=== PATIENT | female | born 1985 | race Asian ===

== ENCOUNTER 2024-02-09 02:31 | Inpatient (IN) | payer BC, SELFPAY ==
[2024-02-09] VITALS (288 sets, daily range): BP systolic 93–140; BP diastolic 51–79; PULSE 63–121; RESP 16–18; TEMP 36.6–37.1; O2SAT 83–100; BMI 35.7
--- NOTE | 2024-02-09 03:21 | XR_ITS ---
Examination: age Limited Technique: Limited transabdominal sonographic images pelvis Exam date and time: February 09, 2024 0345 hrs. Indications: Patient in labor, labor evaluation and not presentation Findings: presentation Vertex Cardiac motion 122 BPM Estimated weight 3383.9 g Estimated age 38 weeks 2 days Impression: Viable intrauterine gestation vertex presentation
--- NOTE | 2024-02-09 04:53 | PRELIM_ITS ---
Obstetric ultrasound (limited) with Doppler. February 09, 2024 0345 hours Clinical history: presentat ion; efw Comparison: None.Findings:There is a gravid uterus with a live fetus in the vertex presentat ion of mean gestational age 38 weeks and 2 days (by biometry). cardiac activity is presen t at a heart rate of 122 beats per minute. The placenta is anterior/fundal in location. There is no evidence of placenta previa or retroplacental hemorrhage. Estimated weight is 3384 grams+/- 501 grams. VIVIAN by ultrasound is 02/21/2024. Impression:Gravid uterus with a single live fetus in vertex presentation of mean gestational age 38 weeks 2 days.Estimated weight is 3384 grams+/- 501 gram s. Report Electronically Signed By: Bud Sanford 02/09/2024 4:52:51 AM [EST]
[2024-02-09 05:26] LABS: Basophils % (Auto) 0 % (0-2.5); Eosinophils # (Auto) 0.2 Thou/mm3 (0.0-0.5); Eosinophils % (Auto) 2 % (0-10); Hemoglobin 12.1 g/dL (12.0-16.0); Immature Granulocytes % (Auto) 1 % (0-0); Immature Granulocytes Auto 0.07 Thou/mm3 (0.00-0.00); Lymphocytes # (Auto) 1.9 Thou/mm3 (1.0-4.8); Lymphocytes % (Auto) 23 % (10-50); Mean Corpuscular HGB Conc 34.6 g/dl (31.0-37.0); Mean Corpuscular Hemoglobin 32.3 pg (25.0-35.0); Mean Corpuscular Volume 93 fL (80-100); Monocytes # (Auto) 0.7 Thou/mm3 (0.0-0.8); Monocytes % (Auto) 9 % (0-12); Neutrophils # (Auto) 5.6 Thou/mm3 (1.8-7.7); Neutrophils % (Auto) 66 % (37-80); Nucleated Red Blood Cell % 0 /100 WBC (0); Platelet Count 253 Thou/mm3 (140-440); RDW Standard Deviation 43.8 fL (36.4-46.3); Red Blood Count 3.75 Miln/mm3 (4.00-5.20); White Blood Count 8.5 Thou/mm3 (3.6-11.0)
[2024-02-09 06:06] LABS: Syphilis Nonreactive (Nonreactive)
--- NOTE | 2024-02-09 07:00 | PD.LDHP ---
Documentation for date of: 02/09/24 OB Labor/Induct. HPI History of Present Illness : 1 History of present illness: 38 y/o @38w1d, conceived through IVF is admitted after spontaneous rupture of membranes at term. Patient denies any fever denies any bleeding or contractions History of Present Dating criteria: LMP confirmed by 1st trimester US Adequate Care: Yes Labs Labs: Negative: Hepatitis B, HIV, Chlamydia, Gonorrhea and Group Beta Strep Meds Home Medications and Allergies Home Medications ?Medication ?Instructions ?Recorded ?Confirmed ?Type aspirin 81 mg chewable tablet 81 mg PO QDAY 11/12/23 11/12/23 History vit no.95-ferrous 1 tab PO QDAY 11/12/23 11/12/23 History fumarate 28 mg-folic acid 800 mcg tablet () Allergies Allergy/AdvReac Type Severity Reaction Status Date / Time No Known Allergies Allergy Verified 11/12/23 11:23 OB Exam Physical Exam Vital signs: Temp Pulse Resp BP Pulse Ox O2 Del Method 97.8 F 100 18 122/73 99 Room Air 02/09/24 03:29 02/09/24 03:10 02/09/24 02:43 02/09/24 03:10 02/09/24 06:48 02/09/24 02:43 Constitutional Constitutional: no acute distress Routine HEENT Exam Head: Present normocephalic and atraumatic Eye: Present EOMI and PERRL ENT: Present mucous membranes moist Routine Neck Exam Neck: Present supple and trachea midline Routine Cardiovascular Exam Cardiovascular: Present RRR Routine Abdominal Exam Abdominal: Present soft and normoactive bowel sounds Detailed Labor and Delivery Exam Dilation (cm): 3 Effacement (%): 50 Presentation: Vertex Membranes: ruptured Amniotic fluid: clear Comments: Category 1 heart tones Occasional contractions Routine Extremities Exam Extremities: Present full ROM Routine Skin Exam Skin: Present intact, dry and warm Routine Neurological Exam Neurological: Present alert, oriented X3 and CN II-XII intact Routine Psychiatric Exam Psychiatric: Present normal affect and normal thought process OB Results Labs 02/09/24 03:45 Labs: Short CBC 02/09/24 Range/Units 03:45 WBC 8.5 (3.6-11.0) Thou/mm3 Hgb 12.1 (12.0-16.0) g/dL Hct 35.0 L (36.0-46.0) % Plt Count 253 (140-440) Thou/mm3 Impressions Impression: 38-year-old G1, P0 conceived through IVF admitted after spontaneous rupture of membrane at 38 weeks and 1 day Vertex presentation Unknown GBS OB Assessment & Plan Additional Plan Additional Plan Comment: GBS prophylaxis Pitocin to be started if no cervical change
[2024-02-09] MEDS: RINGERS LACTATED 1000 ML 1,000 ML 100 ML IV ×3 (08:36→18:03)
[2024-02-09] MEDS: OXYTOCIN in NS 30 units 30 UNIT/500 ML BAG IV (08:50)
[2024-02-09] MEDS: fentaNYL CIT INJ 50 mCg/ML AMP 2ML 100 MCG IV (11:23)
--- NOTE | 2024-02-09 13:14 | PD.LDPN ---
Documentation for date of: 02/09/24 OB Labor Progress Note Pain Control Pain control: epidural Pelvic Exam Dilation (cm): 8 Effacement (%): 90 station: -2 Amniotic membrane status: Ruptured Contractions Monitor mode: External Contraction frequency: 2-3 Contraction duration: 40-60 Status status: Category l Assessment and Plan Pitocin rate (mU/min): 4 Assessment: active labor Plan OB labor note: continuous present management Comments: Pt is progressing well Reassuring fetus Allow pt to labor down upon completion Anticipate
[2024-02-09] MEDS: Ampicillin Inj 2,000 MG in SODIUM CHLORIDE 0.9% (P) 100 ML 200 MG IV (19:58)
[2024-02-09] MEDS: MINERAL OIL 30 ML UDC TOP (21:19)
[2024-02-09] MEDS: BENZO/LANO/ALOE (Dermoplast) 60 GM CAN 1 SPRAY TOP (22:49)
--- NOTE | 2024-02-09 22:50 | PD.LDDELS ---
Data ([facility]) Data Hx Section: No Maternal Blood Type: O Pos Rubella Titre: Positive RPR: Non-reactive Labs: Negative: RPR, Hepatitis B, HIV, Chlamydia, Gonorrhea and Group Beta Strep and Unknown: Herpes Type 1 and Herpes Type 2 : 1 Para: 0 Term: 0 : 0 Livin : 0 Delivery Data ([facility]) Labor Data Stimulated/Augmented: Yes Induction: No Method: Oxytocin ROM Date: 02/09/24 ROM Time: 02:00 Rupture Type: SROM Amniotic Fluid: Clear Delivery Data EDC: 02/22/24 EDC calculated by:: LMP/early US confirmation Labor Onset Stage 1 Date: 02/09/24 Labor Onset Stage 1 Time: 02:00 Labor Onset Stage 2 Date: 02/09/24 Labor Onset Stage 2 Time: 20:08 Delivery Date: 02/09/24 Delivery Time: 22:15 Gestational age (weeks): 38 Gestational age (days): 1 Placenta Delivery Date: 02/09/24 Placenta Delivery Time: 22:18 Delivered by: Neela Catherine Delivery nurse: Whitney Bonilla V Belt Finisher at delivery: No Support person(s) at delivery: FOB Other staff at delivery: 2nd Nurse Other staff at delivery: RT Other staff at delivery: Ashley Brizuela Delivery Method Delivery: Vaginal Delivery Type: Spontaneous Presentation: Vertex Position: OA Anesthesia Type Primary Anesthesia: Epidural Secondary Anesthesia: None Delivery Room Medications Other Intrapartum Medications: No Post Delivery Medications: Antibiotics Post Delivery Medications N/A: Yes Placenta Placenta Delivery: Spontaneous Placenta Cultures Obtained: No Placenta Sent for Examination: No Cord Sample: Cord Blood Obtained Episiotomy Episiotomy: None Lacerations #1: Perineal: 2nd degree Perineal repair Sutures used for repair: other (2.[address] x2) EBL Estimated blood loss (ml): 400 Umbilical Cord Umbilical Vessels: 3 Nuchal Cord: Not Applicable Body Cord: Not Applicable Additional Procedures Patient pushed for about an hour and 20 minutes and had an of a viable female . 's anterior shoulder delivered with gentle downward traction subsequent deliver the posterior shoulder and the body without complications. Infant placed on mother's abdomen vigorous cry upon delivery. Cord was clamped cut by FOB. Cord blood obtained. Three-vessel cord noted. Placenta expelled spontaneously and intact. Patient sustained a second-degree laceration repaired by Dr. Gutierrez. Excellent hemostasis achieved after vigorous fundal massage removal of clots from the posterior fornix. EBL 400. Sponge and needle count correct. Mother and baby stable, skin to skin and bonding in LDR. Data ([facility]) Data Infant Gender: Female Weight Grams: 3130 1 Minute Total: 8 5 Minute Total: 9
[2024-02-09] MEDS: TRANEXAMIC ACID 1,000 MG IVPB 1,000 MG/100 ML BAG 200 MG IV (22:54)
[2024-02-09] MEDS: IBUPROFEN TAB 400 MG TABLET 800 MG PO (23:14)
[2024-02-10] VITALS (7 sets, daily range): BP systolic 95–115; BP diastolic 55–65; PULSE 81–113; RESP 16–19; TEMP 36.4–37; O2SAT 98
[2024-02-10] MEDS: DEXTROSE IV (02:00)
[2024-02-10] MEDS: CEFAZOLIN IV (02:00)
[2024-02-10] MEDS: ACETAMINOPHEN 325 MG TABLET 650 MG PO ×2 (03:04→15:44)
[2024-02-10 06:15] LABS: Basophils % (Auto) 0 % (0-2.5); Eosinophils # (Auto) 0.1 Thou/mm3 (0.0-0.5); Eosinophils % (Auto) 0 % (0-10); Hematocrit 27.4 % (36.0-46.0); Hemoglobin 9.5 g/dL (12.0-16.0); Immature Granulocytes % (Auto) 1 % (0-0); Immature Granulocytes Auto 0.12 Thou/mm3 (0.00-0.00); Lymphocytes # (Auto) 1.5 Thou/mm3 (1.0-4.8); Lymphocytes % (Auto) 9 % (10-50); Mean Corpuscular HGB Conc 34.7 g/dl (31.0-37.0); Mean Corpuscular Hemoglobin 32.5 pg (25.0-35.0); Mean Corpuscular Volume 94 fL (80-100); Monocytes % (Auto) 6 % (0-12); Neutrophils # (Auto) 13.8 Thou/mm3 (1.8-7.7); Neutrophils % (Auto) 84 % (37-80); Nucleated Red Blood Cell % 0 /100 WBC (0); Platelet Count 211 Thou/mm3 (140-440); RDW Standard Deviation 44.6 fL (36.4-46.3); Red Blood Count 2.92 Miln/mm3 (4.00-5.20); White Blood Count 16.6 Thou/mm3 (3.6-11.0)
--- NOTE | 2024-02-10 06:26 | PC.NURSE ---
A Florin PIERCEM called regarding post CBC, pt tachycardic and afebrile since delivery, vaginal bleeding scant-small and firm. rcvd new orders to repeat CBC at 1030 02/10/2024
[2024-02-10] MEDS: IBUPROFEN TAB 400 MG TABLET 800 MG PO (08:15)
[2024-02-10] MEDS: DOCUSATE SOD 100 MG CAPSULE PO (08:15)
--- NOTE | 2024-02-10 08:52 | PD.LDPPPRG ---
Subjective Subjective Interval history: day 1 pt is stable and afebrile, doing well today, ambulating to the restroom, denies dizziness, SOB, breast feeding . Complains of being sore in her vaginal area. Exam Vital Signs Temp Pulse Resp BP Pulse Ox O2 Del Method 97.6 F 95 16 95/57 L 98 Room Air 02/10/24 07:35 02/10/24 07:35 02/10/24 07:35 02/10/24 07:35 02/10/24 07:35 02/10/24 07:35 Constitutional Constitutional: no acute distress Routine HEENT Exam Head: Present normocephalic and atraumatic Eye: Present EOMI, PERRL and normal accommodation ENT: Present mucous membranes moist Routine Neck Exam Neck: Present full ROM Routine Respiratory Exam Respiratory: Present chest non-tender, lungs clear, normal breath sounds and no resp distress Routine Cardiovascular Exam Cardiovascular: Present RRR Routine Abdominal Exam Abdominal: Present soft and normoactive bowel sounds; Absent tenderness or distended Comments: Uterus non-tender Fundus firm Routine Exam Patient deferred: external exam Routine Extremities Exam Extremities: Present full ROM, pulses intact and normal capillary refill; Absent calf tenderness or tenderness Routine Back/Spine/Pelvis Exam Back/Spine: Present full ROM Routine Skin Exam Skin: Present intact, dry and warm Routine Neurological Exam Neurological: Present alert, oriented X3 and CN II-XII intact Routine Psychiatric Exam Psychiatric: Present normal affect and normal thought process Objective Labs 02/10/24 11:06 Labs: Laboratory Results - last 24 hr 02/09/24 02/10/24 03:45 05:35 WBC 16.6 H D RBC 2.92 L Hgb 9.5 L D Hct 27.4 L MCV 94 MCH 32.5 MCHC 34.7 RDW Std Deviation 44.6 Plt Count 211 D Neut % (Auto) 84 H Lymph % (Auto) 9 L [place] % (Auto) 6 Eos % (Auto) 0 Baso % (Auto) 0 Neut # (Auto) 13.8 H Lymph # (Auto) 1.5 [place] # (Auto) 1.0 H Eos # (Auto) 0.1 Baso # (Auto) 0.0 Immature Gran # (Auto) 0.12 H Absolute Nucleated RBC 0.00 Immature Gran % 1 H Nucleated RBC % 0 Blood Type O Positive Antibody Screen NEGATIVE Assessment & Plan Problem List (1) Normal spontaneous vaginal delivery: Status: Acute (2) Encounter for care of lactating mother: Status: Acute (3) Normal labor: Status: Acute Plan Comment Plan Comment: Continue routine routine care Anticipate discharge home tomorrow Time Spent With Patient Time: Total time spent is greater than 50% in coordination of care (as documented) at patient's floor/unit and/or counseling patient:
[2024-02-10 11:32] LABS: Basophils # (Auto) 0.1 Thou/mm3 (0.0-0.2); Basophils % (Auto) 0 % (0-2.5); Eosinophils # (Auto) 0.2 Thou/mm3 (0.0-0.5); Eosinophils % (Auto) 1 % (0-10); Hemoglobin 9.2 g/dL (12.0-16.0); Immature Granulocytes % (Auto) 1 % (0-0); Lymphocytes % (Auto) 13 % (10-50); Mean Corpuscular HGB Conc 34.1 g/dl (31.0-37.0); Mean Corpuscular Hemoglobin 32.2 pg (25.0-35.0); Mean Corpuscular Volume 94 fL (80-100); Monocytes # (Auto) 1.3 Thou/mm3 (0.0-0.8); Monocytes % (Auto) 8 % (0-12); Neutrophils # (Auto) 12.3 Thou/mm3 (1.8-7.7); Neutrophils % (Auto) 77 % (37-80); Nucleated Red Blood Cell % 0 /100 WBC (0); Platelet Count 211 Thou/mm3 (140-440); RDW Standard Deviation 45.2 fL (36.4-46.3); Red Blood Count 2.86 Miln/mm3 (4.00-5.20)
--- NOTE | 2024-02-10 15:55 | PC.NURSE ---
accidentally charted on pt mom instead of baby.
[2024-02-11] VITALS: BP 104/67; PULSE 80; RESP 16; TEMP 37; O2SAT 98
[2024-02-11] MEDS: IBUPROFEN TAB 400 MG TABLET 800 MG PO (01:38)
[2024-02-11 03:20] VITALS: BP 101/64; PULSE 80; RESP 16; TEMP 36.8; O2SAT 98
--- NOTE | 2024-02-11 07:49 | ESDS_ITS ---
DS: Providers Provider Date of admission: 02/09/24 03:13 Primary care physician: Corbin Ray MD Admitting Provider: Junito Gomez MD Attending Provider on Admission: Junito Gomez MD Attending Provider on DC: Neela Catherine CNM Discharging Provider: Neela Catherine CNM Anticipated date of discharge: 02/11/24 DS: Diagnosis Discharge Diagnosis (1) Normal labor: Status: Acute (2) Normal spontaneous vaginal delivery: Status: Acute (3) Encounter for care of lactating mother: Status: Acute Problem List Completed Was Problem List Reviewed/Reconciled?: Yes Summary/Hosp Course Brief History: 38 y/o @38w1d, conceived through IVF is admitted after spontaneous rupture of membranes at term. Patient denies any fever denies any bleeding or contractions 02/09/24: Patient pushed for about an hour and 20 minutes and had an of a viable female . Infant's anterior shoulder delivered with gentle downward traction subsequent deliver the posterior shoulder and the body without complications. placed on mother's abdomen vigorous cry upon delivery. Cord was clamped cut by FOB. Cord blood obtained. Three-vessel cord noted. Placenta expelled spontaneously and intact. Patient sustained a second-degree laceration repaired by Dr. Gutierrez. Excellent hemostasis achieved after vigorous fundal massage removal of clots from the posterior fornix. EBL 400. Sponge and needle count correct. Mother and baby stable, skin to skin and bonding in LDR. 02/10/24: day 1 pt is stable and afebrile, doing well today, ambulating to the restroom, denies dizziness, SOB, breast feeding infant. Complains of being sore in her vaginal area. Continue routine care. Anticipate DC home tomorrow. 02/11/24: day 2. Patient is stable and afebrile doing well eager to go home. Breast-feeding well. No complaints. Uterus is nontender fundus firm minimal lochia. Discharge instructions given. Patient to follow-up with Neela Catherine CNM in 3 weeks Peripartum Data Delivery Method: Normal Vaginal Delivery Episiotomy Description: None Laceration Description: see Delivery Summary complications: none 1: Gender: Female Disposition of : home Status at Discharge Cognitive/behavioral status at discharge: Alert and oriented x 3 Functional status at discharge: independent ambulation Overall status at discharge: patient is progressing back to baseline Time Spent with Patient Time attestation: Total time spent providing and/or coordinating discharge services: Time spent: Greater than 30 minutes Exam Vital Signs Temp Pulse Resp BP Pulse Ox O2 Del Method 98.5 F 100 16 119/56 L 99 Room Air 02/09/24 19:00 02/09/24 22:22 02/09/24 18:34 02/09/24 22:22 02/09/24 22:32 02/09/24 02:43 Constitutional Constitutional: no acute distress Routine HEENT Exam Head: Present normocephalic and atraumatic Eye: Present EOMI, PERRL and normal accommodation ENT: Present mucous membranes moist Routine Neck Exam Neck: Present supple, full ROM and trachea midline Routine Respiratory Exam Respiratory: Present chest non-tender, lungs clear, normal breath sounds and no resp distress Routine Cardiovascular Exam Cardiovascular: Present RRR Routine Abdominal Exam Abdominal: Present soft and normoactive bowel sounds; Absent tenderness or distended Comments: Uterus nontender fundus firm Routine Exam Patient deferred: external exam Routine Extremities Exam Extremities: Present full ROM, pulses intact and normal capillary refill; Absent calf tenderness or tenderness Routine Back/Spine/Pelvis Exam Back/Spine: Present full ROM Routine Skin Exam Skin: Present intact, dry and warm Routine Neurological Exam Neurological: Present alert, oriented X3 and CN II-XII intact Routine Psychiatric Exam Psychiatric: Present normal affect and normal thought process Discharge Plan Plan Patient Disposition: HOME (Self Care) Patient condition on transfer: Stable Prescriptions/Referrals Prescriptions/Med Rec: New ibuprofen 800 mg tablet 800 mg PO Q6H MDD 4 PRN (Reason: pain) Qty: 120 0RF docusate sodium [Colace] 100 mg capsule 100 mg PO BID Qty: 60 0RF lanolin 50 % ointment 1 applic topical TID PRN (Reason: skin irritation) Qty: 15 0RF Continued PNV cmb#95-ferrous fumarate-FA [] 28 mg iron- 800 mcg tablet 1 tab PO QDAY Patient Comments: TAKE 1 TABLET BY MOUTH EVERY DAY Discontinued aspirin 81 mg tablet,chewable 81 mg PO QDAY Patient Comments: CHEW 1 TABLET BY MOUTH EVERY DAY Referrals: Corbin Ray MD [Primary Care Provider] - Patient/Caregiver Discharge Instructions Meds to Beds: No Discharge Activity: activity as tolerated Other Discharge Activity Instructions:: Follow-up with Neela Catherine CNM in 3 weeks Education Materials: After a Vaginal , After Delivery Concerns, : Caring for Yourself Print Language: Brazilian Stand Alone Forms: [place] Award Info., Patient Portal Info Letter Discharge Order Discharge Orders: Discharge (Routine); Ordered 02/11/24 Ordered By: Neela Catherine Planned Discharge Date 02/11/24
[2024-02-11 08:30] VITALS: BP 104/70; PULSE 84; RESP 16; TEMP 36.9; O2SAT 98
[2024-02-11] MEDS: DOCUSATE SOD 100 MG CAPSULE PO (09:21)
== END 2024-02-11 14:11 | disposition home or self-care (01) | DRG 807 ==
LOC: S4SX 22:40 → S4NX 02-10 01:14
PROVIDERS: Nurse Practitioner Women's Health; Admitting Provider Student in an Organized Health Care Education/Training Program; PCP Family Medicine; Visit Provider Student in an Organized Health Care Education/Training Program
DX: O42.02 Full-term premature rupture of membranes, onset of labor within 24 hours of rupture (principal); Z37.0 Single live birth; O70.1 Second degree perineal laceration during delivery; Z3A.38 38 weeks gestation of pregnancy
CPT/HCPCS: 36415; 59025; 59409; 76815; 85025; 86780; 86850; 86900; 86901; 94762; J0290; J0689; J2590; J2795; J3010; J3490; J7120; A9270; J0690